=== PATIENT | female | born 1940 | race Caucasian/White ===

== ENCOUNTER → 2023-10-11 16:59 | Outpatient (REF) | payer MEDICARE, OTHER, SELFPAY | LOC: PAVMRI 16:59 | PROVIDERS: ATTENDING PHYSICIAN Family Medicine; REFERRING PHYSICIAN Psychiatry & Neurology Behavioral Neurology & Neuropsychiatry | DX: I72.0 Aneurysm of carotid artery (principal) | CPT/HCPCS: 70544 ==

== ENCOUNTER → 2023-10-15 12:58 | Outpatient (REF) | payer MEDICARE, OTHER, SELFPAY | LOC: MRI 3T 12:58 | PROVIDERS: ATTENDING PHYSICIAN Psychiatry & Neurology Behavioral Neurology & Neuropsychiatry; FAMILY PHYSICIAN Family Medicine | DX: G30.9 Alzheimer's disease, unspecified (principal) | CPT/HCPCS: 70551 ==

== ENCOUNTER → 2023-12-27 10:58 | Outpatient (REF) | payer MEDICARE, OTHER, SELFPAY ==
[2023-12-27 11:10] VITALS: BP 200/65; BP_SYST 56
[2023-12-27 11:55] VITALS: BP 200/65
== END ==
LOC: RADI 10:58
PROVIDERS: ATTENDING PHYSICIAN Psychiatry & Neurology Behavioral Neurology & Neuropsychiatry; FAMILY PHYSICIAN Family Medicine
DX: Z45.2 Encounter for adjustment and management of vascular access device (principal)
CPT/HCPCS: 36598

== ENCOUNTER → 2024-04-27 10:39 | Outpatient (REF) | payer MEDICARE, OTHER, SELFPAY | LOC: PAVMRI 10:39 | PROVIDERS: ATTENDING PHYSICIAN Psychiatry & Neurology Behavioral Neurology & Neuropsychiatry; FAMILY PHYSICIAN Family Medicine | DX: G30.9 Alzheimer's disease, unspecified (principal) | CPT/HCPCS: 70551 ==

== ENCOUNTER → 2024-05-13 09:54 | Outpatient (REF) | payer MEDICARE, OTHER, SELFPAY ==
[2024-05-13 10:15] VITALS: BP 153/73; BP_SYST 54
[2024-05-13 10:50] VITALS: BP 153/73
== END ==
LOC: RADI 09:54
PROVIDERS: ATTENDING PHYSICIAN Family Medicine
DX: Z45.2 Encounter for adjustment and management of vascular access device (principal)
CPT/HCPCS: 36598

== ENCOUNTER → 2024-06-12 14:03 | Outpatient (REF) | payer MEDICARE, OTHER, SELFPAY ==
[2024-06-12 14:15] VITALS: BP 190/82; BP_SYST 52
== END ==
LOC: RADI 14:03
PROVIDERS: ATTENDING PHYSICIAN Family Medicine
DX: Z45.2 Encounter for adjustment and management of vascular access device (principal)
CPT/HCPCS: 36598

== ENCOUNTER → 2024-11-15 11:14 | Outpatient (REF) | payer MEDICARE, OTHER, SELFPAY | LOC: PAVMRI 11:14 | PROVIDERS: ATTENDING PHYSICIAN Psychiatry & Neurology Behavioral Neurology & Neuropsychiatry; FAMILY PHYSICIAN Family Medicine | DX: G30.9 Alzheimer's disease, unspecified (principal) | CPT/HCPCS: 70551 ==